=== PATIENT | male | born 1985 | race Two or more races ===

== ENCOUNTER 2020-06-28 17:02 | Emergency (ER) | payer MEDICAID, OTHER ==
[~2020-06-28] VITALS: Ht 167.6 cm; Wt 70.3 kg
[2020-06-28 19:39] LABS: Basophils # (auto) 0 10 ^3/uL (0-0.2); Basophils % (auto) 0.1 % (0.0-2.0); Eosinophils # (auto) 0 10 ^3/uL (0-0.8); Hemoglobin 15.9 g/dL (13.5-17.5); Lymphocytes # (auto) 0.7 10 ^3/uL (0.4-5.4); Lymphocytes % (auto) 11.3 % (10.0-50.0); Mean Corpuscular Hemoglobin 30.5 pg (28.0-32.0); Mean Corpuscular Hgb Conc. 34.5 g/dL (32.0-36.0); Mean Corpuscular Volume 88.4 fL (80.0-100.0); Monocytes # (auto) 0.1 10 ^3/uL (0-1.3); Monocytes % (auto) 1.4 % (0.0-12.0); Neutrophils # (auto) 5.1 10 ^3/uL (1.6-8.6); Neutrophils % (auto) 87.2 % (37.0-80.0); Platelet Count (auto) 278 10^3/uL (140-450); Red Cell Distribution Width 13.3 % (11.8-14.3); White Blood Cell 5.8 10^3/uL (4.4-10.8)
[2020-06-28 19:42] LABS: Amphetamine Screen, Urine NEGATIVE (NEGATIVE); Barbiturate Scree,Urine NEGATIVE (NEGATIVE); Benzodiazephine Screen, Urine NEGATIVE (NEGATIVE); Cannabinoid Screen, Urine NEGATIVE (NEGATIVE); Cocaine Screen, Urine NEGATIVE (NEGATIVE); Opiate Scree,Urine NEGATIVE (NEGATIVE)
[2020-06-28 19:50] LABS: Phencyclidine Screen, Urine NEGATIVE (NEGATIVE)
[2020-06-28 20:00] LABS: Albumin 4.3 g/dL (3.4-5.0); Calcium 8.3 mg/dL (8.5-10.1); Magnesium 2.4 mg/dL (1.6-2.6); Potassium 4.2 mmol/L (3.5-5.1)
[2020-06-28 20:03] LABS: BUN/Creatinine Ratio 6.5; Bilirubin, Total 0.4 mg/dL (0.2-1.0); Total Protein 8.1 g/dL (6.4-8.2)
[2020-06-28 20:05] LABS: Salicylate 2.4 mg/dL (2.8-20.0)
[2020-06-28 20:21] LABS: Acetaminophen < 2.0 ug/mL (10-30)
[2020-06-28 22:26] VITALS: BP 129/59
[2020-06-29] MEDS ORDERED: FOLIC ACID 1 MG, MULTIPLE VITAMIN 10 ML, MAGNESIUM SULF SDV 50% 8 MEQ, THIAMINE INJ 100... INJ SCH ×5 (12:00)
== END 2020-06-28 23:54 | disposition left against medical advice (07) ==
LOC: EDBD 17:02 → ER 17:02
DX: E11.65 Type 2 diabetes mellitus with hyperglycemia (principal); F10.129 Alcohol abuse with intoxication, unspecified; R41.82 Altered mental status, unspecified; Y90.8 Blood alcohol level of 240 mg/100 ml or more
CPT/HCPCS: 36415; 80053; 80307; 80320; 80329; 83735; 85025; 96365

== ENCOUNTER 2023-06-09 20:02 | Inpatient (IN) | payer MEDICAID, MEDICARE ==
[~2023-06-09] VITALS: Ht 167.6 cm; Wt 50.0 kg
[2023-06-09 22:09] LABS: Basophils # (auto) 0 10 ^3/uL (0-0.2); Basophils % (auto) 0.5 % (0.0-2.0); Hemoglobin 9.8 g/dL (13.5-17.5); Lymphocytes # (auto) 1.1 10 ^3/uL (0.4-5.4); Monocytes # (auto) 0.5 10 ^3/uL (0-1.3); Monocytes % (auto) 7.4 % (0.0-12.0); Neutrophils # (auto) 4.5 10 ^3/uL (1.6-8.6); Red Blood Cells 3.79 10^6/uL (4.5-5.90); White Blood Cell 6.2 10^3/uL (4.4-10.8)
[2023-06-09 22:10] LABS: Eosinophils # (auto) 0 10 ^3/uL (0-0.8); Eosinophils % (auto) 0.8 % (0.0-7.0); Hematocrit 30.2 % (41.0-53.0); Lymphocytes % (auto) 18.2 % (10.0-50.0); Mean Corpuscular Hgb Conc. 32.6 g/dL (32.0-36.0); Mean Corpuscular Volume 79.7 fL (80.0-100.0); Neutrophils % (auto) 73.1 % (37.0-80.0); Red Cell Distribution Width 14.1 % (11.8-14.3)
[2023-06-09 22:15] LABS: Acetaminophen < 2.0 UG/ML (10.0-20.0); Alanine Aminotransferase 11 U/L (7-40); Albumin 4.1 g/dL (3.2-4.8); Alkaline Phosphatase 171 U/L (46-116); Anion Gap 13 (5-15); Aspartate Aminotransferase 9 U/L (13-40); BUN/Creatinine Ratio 12.6 (10.0-20.0); Bilirubin, Total 0.4 mg/dL (0.2-1.0); Blood Alcohol 61.6 mg/dL (<10); Blood Urea Nitrogen 14 mg/dL (9-23); Calcium 9.1 mg/dL (8.7-10.4); Carbon Dioxide 21 mmol/L (20-30); Chloride 95 mmol/L (98-107); Potassium 3.6 mmol/L (3.5-5.1); Sodium 129 mmol/L (136-145); Total Protein 8.6 g/dL (5.7-8.2)
[2023-06-09 22:18] LABS: Salicylate < 3.0 mg/dL (2.8-20.0)
[2023-06-09 22:35] LABS: Glucose 599 mg/dL (74-106)
[2023-06-09 23:30] VITALS: PULSE 100; O2SAT 98
[2023-06-10] MEDS ORDERED: InsuLIN REG 1unit/0.01ml Soln (100units/ml) IV ONE (04:30)
[2023-06-10] MEDS ORDERED: LACTATED RINGER'S 2,000 ML IV ONE (04:30)
[2023-06-10] MEDS ORDERED: DOCUSATE SOD 100 MG CAP PO PRN (06:00)
[2023-06-10] MEDS ORDERED: HYDROcodone-ACET 5/325MG TAB PO PRN (06:00)
[2023-06-10] MEDS ORDERED: ACETAMINOPHEN 325 MG TAB PO PRN (06:00)
[2023-06-10] MEDS ORDERED: DEXTROSE (50%) 50ML SYRG IV PRN (06:00)
[2023-06-10] MEDS ORDERED: ONDANSETRON HCL 4 MG/2 ML VIAL IV PRN (06:00)
[2023-06-10] MEDS ORDERED: MORPHINE SULFATE INJ 2 MG/ml SYRG IV PRN (06:30)
[2023-06-10] MEDS ORDERED: NITROGLYCERIN 0.4 MG SL TAB SL PRN (06:30)
[2023-06-10] MEDS: SODIUM CHLORIDE 0.9% 1,000 ML IV SCH ×2 (06:58→23:11)
[2023-06-10] MEDS ORDERED: InsuLIN REG 1unit/0.01ml Soln (100units/ml) SC SCH ×3 (07:00→22:00)
[2023-06-10] MEDS ORDERED: ACCU-CHEK COMFORT CURVE STRIP VI SCH ×2 (07:00→08:00)
[2023-06-10 07:29] LABS: Basophils # (auto) 0 10 ^3/uL (0-0.2); Basophils % (auto) 0.7 % (0.0-2.0); Eosinophils # (auto) 0.1 10 ^3/uL (0-0.8); Hemoglobin 9.7 g/dL (13.5-17.5); Lymphocytes # (auto) 0.9 10 ^3/uL (0.4-5.4); Monocytes # (auto) 0.3 10 ^3/uL (0-1.3); Neutrophils # (auto) 3.2 10 ^3/uL (1.6-8.6)
[2023-06-10 07:31] LABS: Eosinophils % (auto) 1.6 % (0.0-7.0); Hematocrit 29.2 % (41.0-53.0); Lymphocytes % (auto) 20.7 % (10.0-50.0); Mean Corpuscular Hemoglobin 25.9 pg (28.0-32.0); Mean Corpuscular Hgb Conc. 33.1 g/dL (32.0-36.0); Mean Corpuscular Volume 78.3 fL (80.0-100.0); Monocytes % (auto) 7.2 % (0.0-12.0); Neutrophils % (auto) 69.8 % (37.0-80.0); Red Blood Cells 3.73 10^6/uL (4.5-5.90); Red Cell Distribution Width 13.7 % (11.8-14.3); White Blood Cell 4.6 10^3/uL (4.4-10.8)
[2023-06-10 07:43] LABS: Alanine Aminotransferase 15 U/L (7-40); Albumin 3.8 g/dL (3.2-4.8); Alkaline Phosphatase 151 U/L (46-116); Anion Gap 4 (5-15); Aspartate Aminotransferase 12 U/L (13-40); BUN/Creatinine Ratio 15.4 (10.0-20.0); Bilirubin, Total 0.5 mg/dL (0.2-1.0); Blood Urea Nitrogen 14 mg/dL (9-23); Calcium 9.1 mg/dL (8.5-10.1); Carbon Dioxide 27 mmol/L (20-30); Chloride 100 mmol/L (98-107); Sodium 131 mmol/L (136-145)
[2023-06-10 07:58] LABS: Glucose 429 mg/dL (74-106)
[2023-06-10 08:04] VITALS: PULSE 95; RESP 16; O2SAT 95
[2023-06-10 09:37] LABS: Amphetamine Screen, Urine Pos (NEGATIVE)
[2023-06-10 09:39] LABS: Barbiturate Scree,Urine Neg (NEGATIVE); Benzodiazephine Screen, Urine Neg (NEGATIVE); Cannabinoid Screen, Urine Neg (NEGATIVE); Cocaine Screen, Urine Neg (NEGATIVE); Opiate Scree,Urine Neg (NEGATIVE); Phencyclidine Screen, Urine Neg (NEGATIVE)
[2023-06-10 09:44] LABS: Urine Bacteria FEW /hpf (None Seen); Urine Blood Negative /uL (Negative); Urine Clarity Clear (Clear); Urine Color Colorless (Yellow); Urine Protein, UAD Negative (Negative); Urine Specific Gravity 1.012 (1.001-1.035); Urine Urobilinogen Normal (Negative); Urine WBC 27 /hpf (0 - 3); Urine pH 5.5 (5.0-8.0)
[2023-06-10] MEDS: FOLIC ACID 1 MG TAB PO SCH (10:05)
[2023-06-10] MEDS: THIAMINE HCL 100 MG TAB PO SCH (10:06)
[2023-06-10] MEDS: MULTIPLE VITAMIN TAB PO SCH (10:06)
[2023-06-10] MEDS: INSULIN LANTUS (GLARGINE) 1 /0.01ml (100units/ml) SC SCH ×2 (10:23→23:11)
[2023-06-10] MEDS ORDERED: DEXTROSE (50%) 50ML SYRG IV ONE (11:45)
[2023-06-10] MEDS ORDERED: InsuLIN REG 1unit/0.01ml Soln (100units/ml) SC ONE (17:00)
[2023-06-10] MEDS ORDERED: ACCU-CHEK COMFORT CURVE STRIP VI ONE (17:00)
[2023-06-11 00:15] VITALS: PULSE 96; RESP 16; O2SAT 95
[2023-06-11 06:24] LABS: Basophils # (auto) 0 10 ^3/uL (0-0.2); Eosinophils # (auto) 0.1 10 ^3/uL (0-0.8); Monocytes # (auto) 0.4 10 ^3/uL (0-1.3); Red Blood Cells 3.89 10^6/uL (4.5-5.90)
[2023-06-11 06:25] LABS: Basophils % (auto) 0.4 % (0.0-2.0); Hematocrit 30.8 % (41.0-53.0); Hemoglobin 10.2 g/dL (13.5-17.5); Lymphocytes % (auto) 17.3 % (10.0-50.0); Mean Corpuscular Hemoglobin 26.1 pg (28.0-32.0); Monocytes % (auto) 6.3 % (0.0-12.0); Neutrophils # (auto) 4.2 10 ^3/uL (1.6-8.6); Nucleated Red Blood Cells % 0.1 %; Red Cell Distribution Width 13.8 % (11.8-14.3); White Blood Cell 5.6 10^3/uL (4.4-10.8)
[2023-06-11 06:37] LABS: Albumin 3.5 g/dL (3.2-4.8); Alkaline Phosphatase 149 U/L (46-116); Anion Gap 6 (5-15); Aspartate Aminotransferase 9 U/L (13-40); BUN/Creatinine Ratio 18.2 (10.0-20.0); Blood Urea Nitrogen 18 mg/dL (9-23); Calcium 8.8 mg/dL (8.7-10.4); Carbon Dioxide 25 mmol/L (20-30); Chloride 101 mmol/L (98-107); Potassium 4.2 mmol/L (3.5-5.1); Sodium 132 mmol/L (136-145)
[2023-06-11 06:38] LABS: Bilirubin, Total 0.2 mg/dL (0.2-1.0); Total Protein 7.5 g/dL (5.7-8.2)
[2023-06-11 06:44] LABS: Alanine Aminotransferase < 9 U/L (7-40)
[2023-06-11 06:45] LABS: Glucose 440 mg/dL (74-106)
[2023-06-11] MEDS ORDERED: DEXTROSE (50%) 50ML SYRG IV PRN (07:00)
[2023-06-11] MEDS: ACCU-CHEK COMFORT CURVE STRIP VI SCH ×4 (07:05→20:20)
[2023-06-11] MEDS: InsuLIN REG 1unit/0.01ml Soln (100units/ml) SC SCH ×4 (07:09→20:20)
[2023-06-11] MEDS: INSULIN LANTUS (GLARGINE) 1 /0.01ml (100units/ml) SC SCH ×2 (07:15→22:04)
[2023-06-11 08:10] VITALS: PULSE 87; RESP 26; O2SAT 98
[2023-06-11] MEDS: MULTIPLE VITAMIN TAB PO SCH (11:03)
[2023-06-11] MEDS: FOLIC ACID 1 MG TAB PO SCH (11:03)
[2023-06-11] MEDS: THIAMINE HCL 100 MG TAB PO SCH (11:04)
[2023-06-11 12:03] LABS: Erythrocyte Sedimentation Rate 95 mm/hr (0-20)
[2023-06-11] MEDS ORDERED: QUEtiapine FUMARATE 25 MG TAB PO SCH (12:15)
[2023-06-11] MEDS: OLANZapine 5 MG TAB PO SCH (15:01)
[2023-06-11] MEDS ORDERED: LORazepam 0.5 MG TAB PO PRN (15:45)
[2023-06-11] MEDS: SODIUM CHLORIDE 0.9% 1,000 ML IV SCH (16:44)
[2023-06-11] MEDS: AMPICILLIN & SULBACTAM SODIUM 3 GM in SODIUM CHL 0.9% 100 ML IV SCH (16:55)
[2023-06-11 19:50] VITALS: PULSE 86; RESP 20
[2023-06-11] MEDS ORDERED: traZODone HCL 50 MG TAB PO SCH (22:00)
[2023-06-12] MEDS: AMPICILLIN & SULBACTAM SODIUM 3 GM in SODIUM CHL 0.9% 100 ML IV SCH ×3 (00:14→11:00)
[2023-06-12] MEDS: InsuLIN REG 1unit/0.01ml Soln (100units/ml) SC SCH ×4 (00:57→11:45)
[2023-06-12] MEDS: ACCU-CHEK COMFORT CURVE STRIP VI SCH ×4 (00:57→11:48)
[2023-06-12 06:39] LABS: Basophils # (auto) 0 10 ^3/uL (0-0.2); Basophils % (auto) 0.5 % (0.0-2.0); Eosinophils # (auto) 0.1 10 ^3/uL (0-0.8); Lymphocytes # (auto) 1.4 10 ^3/uL (0.4-5.4); White Blood Cell 5.8 10^3/uL (4.4-10.8)
[2023-06-12 06:40] LABS: Hematocrit 30.2 % (41.0-53.0); Mean Corpuscular Hemoglobin 25.6 pg (28.0-32.0); Mean Corpuscular Volume 77.6 fL (80.0-100.0); Monocytes # (auto) 0.4 10 ^3/uL (0-1.3); Monocytes % (auto) 7.5 % (0.0-12.0); Neutrophils # (auto) 3.9 10 ^3/uL (1.6-8.6); Nucleated Red Blood Cells % 0.2 %; Red Blood Cells 3.89 10^6/uL (4.5-5.90); Red Cell Distribution Width 13.9 % (11.8-14.3)
[2023-06-12] MEDS: INSULIN LANTUS (GLARGINE) 1 /0.01ml (100units/ml) SC SCH (06:52)
[2023-06-12 07:02] LABS: Alanine Aminotransferase 10 U/L (7-40); Alkaline Phosphatase 135 U/L (46-116); Anion Gap 7 (5-15); Aspartate Aminotransferase 10 U/L (13-40); Carbon Dioxide 25 mmol/L (20-30); Chloride 105 mmol/L (98-107); Magnesium 1.6 mg/dL (1.6-2.6); Potassium 4.3 mmol/L (3.5-5.1); Sodium 137 mmol/L (136-145)
[2023-06-12 07:03] LABS: Albumin 3.5 g/dL (3.2-4.8); Bilirubin, Total < 0.2 mg/dL (0.2-1.0); Total Protein 7.2 g/dL (5.7-8.2)
[2023-06-12 07:07] LABS: Blood Urea Nitrogen 32 mg/dL (9-23); Glucose 192 mg/dL (74-106)
[2023-06-12] MEDS: SODIUM CHLORIDE 0.9% 1,000 ML IV SCH (08:00)
[2023-06-12 08:18] VITALS: PULSE 91; RESP 16; TEMP 98.2; O2SAT 98
[2023-06-12] MEDS: OLANZapine 5 MG TAB PO SCH (10:01)
[2023-06-12] MEDS: THIAMINE HCL 100 MG TAB PO SCH (10:01)
[2023-06-12] MEDS: FOLIC ACID 1 MG TAB PO SCH (10:02)
[2023-06-12] MEDS: MULTIPLE VITAMIN TAB PO SCH (10:02)
[2023-06-12 11:03] VITALS: BP 114/84; PULSE 87; RESP 16; O2SAT 100
[2023-06-12] MEDS ORDERED: AMOXICILLIN/CLAVUL 875 MG TAB PO SCH (12:30)
== END 2023-06-12 12:06 | disposition left against medical advice (07) | DRG 420 ==
LOC: EDBD 20:02 → ER 20:05 → TELE 06-10 06:27
PROVIDERS: ADMIT Internal Medicine; ATTEND Internal Medicine
DX: E11.65 Type 2 diabetes mellitus with hyperglycemia (principal); R45.851 Suicidal ideations; D64.9 Anemia, unspecified; F10.129 Alcohol abuse with intoxication, unspecified; F41.9 Anxiety disorder, unspecified; N39.0 Urinary tract infection, site not specified; R74.8 Abnormal levels of other serum enzymes; Z59.00 Homelessness unspecified; E87.1 Hypo-osmolality and hyponatremia
CPT/HCPCS: 36415; 71045; 73700; 80053; 80307; 80320; 80329; 81001; 82010; 82140; 82962; 83036; 83605; 83735; 84443; 85025; 85652; 86141; 96372; G0378; J1815